=== PATIENT | female | born 1965 | race Caucasian/White ===

== ENCOUNTER 2017-03-03 11:30 | Inpatient (IN) | payer OTHER ==
[~2017-03-03] VITALS: Ht 170.2 cm; Wt 82.6 kg
[~2017-03-03 11:30] MED LIST: PERCOCET 5-3251 EACH PO
[2017-03-04] MEDS ORDERED: SYNTHROID50 MCG PO (09:56)
[2017-03-04] MEDS ORDERED: MULTI-DAY VITA1 EACH PO (09:56)
== END 2017-04-23 12:11 | DRG 627 ==
LOC: SURH 03-10 11:30 → O/R 04-22 06:14 → SURH 04-22 11:30 → OB/GYN 04-22 15:08
PROVIDERS: Surgery
PROC: 0GTH0ZZ Resection of Right Thyroid Gland Lobe, Open Approach (ICD-10-PCS; principal; 2017-04-22 13:15)
DX: C73 Malignant neoplasm of thyroid gland (principal); E03.8 Other specified hypothyroidism; E04.1 Nontoxic single thyroid nodule